=== PATIENT | female | born 1970 | race Caucasian/White ===

== ENCOUNTER 2017-08-31 15:37 | Emergency (ER) | payer MEDICAID ==
[~2017-08-31] VITALS: Ht 162.6 cm; Wt 74.2 kg
[2017-08-31 15:43] VITALS: Ht 162.6 cm; Wt 74.2 kg
--- NOTE | 2017-08-31 17:02 | RADRPT ---
PROCEDURE: Chest x-ray CLINICAL INDICATION: Chest pain TECHNIQUE: Chest single view COMPARISON: None FINDINGS: The heart is normal in size. The pulmonary vessels are normal in caliber. The lungs are clear. Th e costophrenic angles are sharp. The visualized bony thorax is unremarkable. IMPRESSION: No acute cardiopulmonary disease. RPTAT: HH .Jose Guadalupe Contreras MD, MD Date Time Electronically viewed and signed by .Jose Guadalupe Contreras MD, on 08/31/2017 17:02 .W/
[2017-08-31 17:26] LABS: BASOPHIL # 0.1 10^3/ul (0.0-0.1); BASOPHILS % 0.9 % (0.0-2.0); EOSINOPHILS % 0.6 % (0.0-7.0); HEMATOCRIT 38.4 % (37.0-47.0); LYMPHOCYTES # 2.4 10^3/ul (0.8-2.9); LYMPHOCYTES % 36.3 % (15.0-51.0); MEAN CORPUSCULAR HGB CONC 33.9 g/dl (32.0-37.0); MEAN CORPUSCULAR VOLUME 94.6 fl (82.0-101.0); MEAN PLATELET VOLUME 12.1 fl (7.4-10.4); MONOCYTE # 0.6 10^3/ul (0.3-0.9); MONOCYTES % 9.8 % (0.0-11.0); NEUTROPHIL # 3.4 10^3/ul (1.6-7.5); NEUTROPHILS % 52.2 % (39.0-77.0); PLATELET COUNT 185 10^3/UL (140-415); RED BLOOD COUNT 4.06 10^6/ul (4.20-5.40); RED CELL DISTRIBUTION WIDTH 12.2 % (11.5-14.5); WHITE BLOOD COUNT 6.5 10^3/ul (4.8-10.8)
[2017-08-31 17:46] LABS: ANION GAP 13 (8-16); BLOOD UREA NITROGEN 12 mg/dl (7-20); CALCIUM 9.1 mg/dl (8.4-10.2); CARBON DIOXIDE 27 mmol/L (21-31); CHLORIDE 107 mmol/L (97-110); CREATININE 0.75 mg/dl (0.44-1.00); GLUCOSE 99 mg/dl (70-220); POTASSIUM 4.7 mmol/L (3.5-5.1); SODIUM 142 mmol/L (135-144)
[2017-08-31 17:56] LABS: TROPONIN-I < 0.012 ng/ml (0.00-0.12)
[2017-08-31] MEDS ORDERED: KETOROLAC 30 MG INJ IV STA (18:01)
[2017-08-31] MEDS ORDERED: KETOROLAC 30 MG INJ ONE (18:13)
--- NOTE | 2017-08-31 18:24 | ERD ---
ER Documentation Chief Complaint Chief Complaint Chest pain x 3 days on and off, w/SOB HPI This is a 47-year-old female with no previous medical conditions who presents to the emergency room for evaluation of chest pain. The patient states she has had chest pain on and off for the past 3 days however is been constant for the past 24 hours. The patient states that as an achy pain worse with deep inspiration. The patient denies any radiation of the pain and denies any exertional component of the pain. Patient denies any nausea, vomiting, diaphoresis associated with this pain and came to the emergency room today for evaluation of her symptoms ROS All systems reviewed and are negative except as per history of present illness. Allergies Allergies: Coded Allergies: No Known Allergy (Unverified , 08/31/17) PMhx/Soc Medical and Surgical Hx: pt denies Medical Hx, pt denies Surgical Hx Hx Alcohol Use: No Hx Substance Use: No Hx Tobacco Use: No Smoking Status: Never smoker Physical Exam Vitals Vital Signs Date Time Temp Pulse Resp B/P Pulse Ox O2 Delivery O2 Flow Rate FiO2 08/31/17 17:13 Nasal Cannula 2 08/31/17 15:43 98.4 84 20 151/78 99 Physical Exam INITIAL VITAL SIGNS: Reviewed by me GENERAL: The patient is well developed and appropriate for usual state of health in no apparent distress HEENT: Pupils equal, round, and reactive to light. EOMI. There is no scleral icterus. NECK: C-spine is soft and supple, there is no meningismus. There is no cervical lymphadenopathy. LUNGS: Clear to auscultation bilaterally. There are no rales, wheezes or rhonchi. HEART: Regular rate and rhythm, no murmurs, clicks, rubs or gallops. ABDOMEN: Soft, non-tender, non-distended. There are bowel sounds in all four quadrants. No rebound or guarding. EXTREMITIES: There is no peripheral cyanosis or edema. No focal swelling or erythema. NEUROLOGICAL: The patient moves all four extremities with 5/5 strength. Cranial nerves II - XII are intact. Normal gait. Alert and oriented SKIN: There is no apparent rash or petechiae. HEME/LYMPHATIC: There is no evidence of excessive bruising or lymphedema. PSYCHIATRIC: The patient does not appear anxious or depressed. Result Diagram: 08/31/17 1700 08/31/17 1700 Results 24 hrs Laboratory Tests Test 08/31/17 17:00 White Blood Count 6.510^3/ul Red Blood Count 4.0610^6/ul Hemoglobin 13.0g/dl Hematocrit 38.4% Mean Corpuscular Volume 94.6fl Mean Corpuscular Hemoglobin 32.0pg Mean Corpuscular Hemoglobin Concent 33.9g/dl Red Cell Distribution Width 12.2% Platelet Count 88675^3/UL Mean Platelet Volume 12.1fl Neutrophils % 52.2% Lymphocytes % 36.3% Monocytes % 9.8% Eosinophils % 0.6% Basophils % 0.9% Nucleated Red Blood Cells % 0.0/100WBC Neutrophils # 3.410^3/ul Lymphocytes # 2.410^3/ul Monocytes # 0.610^3/ul Eosinophils # 0.010^3/ul Basophils # 0.110^3/ul Nucleated Red Blood Cells # 0.010^3/ul Sodium Level 142mmol/L Potassium Level 4.7mmol/L Chloride Level 107mmol/L Carbon Dioxide Level 27mmol/L Anion Gap 13 Blood Urea Nitrogen 12mg/dl Creatinine 0.75mg/dl Glucose Level 99mg/dl Calcium Level 9.1mg/dl Troponin I < 0.012ng/ml Current Medications Medications (Trade) Dose Ordered Sig/Paulette Route PRN Reason Start Time Stop Time Status Last Admin Dose Admin Ketorolac Tromethamine (Toradol) 30 mg ONCE STAT IV 08/31/17 18:01 08/31/17 18:20 DC Ketorolac Tromethamine (Toradol) 30 mg STK-MED ONCE .ROUTE 08/31/17 18:13 08/31/17 18:14 DC Procedures/MDM EKG: Rate/Rhythm: [Normal Sinus Rhythm] QRS, ST, T-waves: [No changes consistent w/ acute ischemia] Impression: [No evidence of ischemia or arrhythmia] Chest X-ray 1V Interpreted by me: Soft Tissue: No acute abnormalities Bones: No acute abnormalities Mediastinum/Cardiac Silhouette/Lungs: [No acute abnormalities] This 47-year-old female presents to the ER for evaluation of chest pain. This patient is in no acute distress when I evaluated her she was hemodynamically stable, nontoxic-appearing and not hypoxic. This patient is no previous medical conditions, no family history, she is non-smoker. Lab work was obtained in the patient's troponin is negative. Her chest x-ray is clear and her EKG is nonischemic with no signs of ST elevation or ST depression. This patient has a PERC score of 0, she has a heart score of 0, and was feeling better after she was given Toradol. This patient likely suffering from costochondritis. Patient will be discharged home with a prescription for Motrin and instructions to return immediately to the ER if the patient's chest pain or shortness of breath were to return or worsen. She verbalized understanding and is okay to plan of care. Exitcare instructions provided. Patient counseled regarding my diagnostic impression and care plan. Precautionary instructions provided including instructions to return to the ER if not improving or for any worsening or changing symptoms or concerns. Prescriptions: Motrin Precautionary instructions provided regarding medication use and safety. Specialist follow up recommended: [none] Patient has been advised to follow up with primary care provider as needed. Prior to discharge, patient's vital signs have been reviewed. [Patient's blood pressure was noted elevated (>120/80). The patient was counseled about the risks of hypertension and urged to pursue outpatient monitoring and therapy within a week with their primary care physician.] Departure Diagnosis: Primary Impression: Chest pain Condition: Stable MORIAHSKY DAMICO Aug 31, 2017 18:24
[2017-08-31] MEDS ORDERED: IBUP800T25 PO (18:25)
[2017-08-31 18:40] VITALS: BP 120/54; PULSE 65; RESP 20; TEMP 97.8
== END 2017-08-31 18:41 | disposition home or self-care (01) ==
LOC: E/R 15:37
DX: R07.9 Chest pain, unspecified (principal)
CPT/HCPCS: 36415; 71010; 80048; 84484; 85025; 93005; 96374; J1885; Z7502

== ENCOUNTER 2019-05-11 13:50 | Emergency (ER) | payer MEDICAID ==
[~2019-05-11] VITALS: Ht 165.1 cm; Wt 79.3 kg
[~2019-05-11 13:50] MED LIST: IBUP-1544 PO
[2019-05-11 14:01] VITALS: BP 129/61; PULSE 76; RESP 16; Ht 165.1 cm; Wt 79.3 kg
[2019-05-11] MEDS ORDERED: LORAZEPAM 0.5 MG TAB PO ONE (15:30)
--- NOTE | 2019-05-11 15:31 | ERD ---
ER Documentation Chief Complaint Chief Complaint anxiety x 4 days, feels nervous HPI 49-year-old female, with history of depression, presents to the emergency department, brought in by a sister, complaining of 4 days with increased anxiety, associated with lack of sleep. The patient denies any visual or auditory hallucinations, no suicidal or homicidal ideation. ROS All systems reviewed and are negative except as per history of present illness. Medications Home Meds Active Scripts Lorazepam* (Ativan*) 0.5 Mg Tablet, 0.5 MG PO Q8H PRN for ANXIETY, #10 TAB Prov:CHANTEL LAURENT MD 05/11/19 Ibuprofen* (Ibuprofen*) 800 Mg Tablet, 800 MG PO Q8 for 10 Days, TAB Prov:SKY MAJOR DO 08/31/17 Allergies Allergies: Coded Allergies: No Known Allergy (Unverified , 08/31/17) PMhx/Soc Hx Psychiatric Problems: Yes (depression) Hx Alcohol Use: No Hx Substance Use: No Hx Tobacco Use: No FmHx Family History: diabetes; No coronary disease Physical Exam Vitals Vital Signs Date Temp Pulse Resp B/P (MAP) Pulse Ox O2 O2 Flow FiO2 Time Delivery Rate 05/11/19 98.9 76 16 129/61 98 14:01 (83) Physical Exam Const: No acute distress, But looks anxious and distracted. Head: Atraumatic Eyes: Normal Conjunctiva ENT: Normal External Ears, Nose and Mouth. Neck: Full range of motion. No meningismus. Resp: Clear to auscultation bilaterally Cardio: Regular rate and rhythm, no murmurs Abd: Soft, non tender, non distended. Normal bowel sounds Skin: No petechiae or rashes Back: No midline or flank tenderness Ext: No cyanosis, or edema Neur: Awake and alert Psych: Normal Mood and Affect Results 24 hrs Current Medications Medications Dose Sig/Paulette Start Time Status Last (Trade) Ordered Route PRN Stop Time Admin Dose Reason Admin Lorazepam 0.5 mg ONCE ONCE 05/11/19 DC 05/11/19 (Ativan) PO 15:30 15:36 05/11/19 15:35 Procedures/MDM Vital signs stable, Physical exam unremarkable, neurovascular exam intact. Differential diagnosis include but not limited to: Depression, anxiety, migraine, thyroid disease, electrolyte imbalance. Low suspicion for acute coronary event, aortic dissection, CVA. Physical examination and clinical presentation consistent most likely with anxiety. During the ED course the patient remained stable, no new complaints. The patient received treatment with lorazepam presenting overall improvement of the symptoms. Treatment options, results and clinical impression discussed with patient who agrees with management. The patient is stable to be treated outpatient and will be discharged home with a Rx for lorazepam, some side effects of prescribed medications (headache, rash, nausea, vomiting, diarrhea, drowsiness, habituation, bleeding, hypertension, interactions with other medications) were reviewed. The patient was instructed to follow up with the primary care provider in the next 48h. If symptoms persist, worsen or new symptoms develop, then patient should return to the ED immediately. Instructions explained and given directly by me to the patient with acknowledgment and demonstrated understanding. Disclaimer: Inadvertent spelling and grammatical errors are likely due to EHR/dictation software use and do not reflect on the overall quality of patient care. Also, please note that the electronic time recorded on this note does not necessarily reflect the actual time of the patient encounter. Departure Diagnosis: Primary Impression: Anxiety Condition: Stable Additional Instructions: Muchas phillip por [facility] para torres servicio. Esperamos que en torres visita a la telma de emergencia torres problema medico haya sido solucionado y que se sienta mucho mejor. Para estar seguros que torres mejoria sigue en proceso, le pedimos el favor de hacer eliza china de seguimiento medico con torres doctor primario en los proximos 2-4 ledezma. Lleve con usted estos documentos y las medicinas recetadas. Si gonsalo sintomas empeoran, NO SE ESPERE, por favor regrese a telma de emergencia INMEDIATAMENTE. En ceci que usted no tenga un mdico de atencin primaria: Llame al mdico o clnica comunitaria de referencia que aparece abajo radha las horas de consultorio para hacer eliza china para que le vean. CLINICAS: [facility] [phone] [id number] [facility] [phone] [id number] [facility] [phone] [facility] [phone] [facility] [phone] [facility]. [phone] CHANTEL HILL MD May 11, 2019 15:31
[2019-05-11] MEDS ORDERED: LORA-441 PO (15:51)
== END 2019-05-11 16:06 | disposition home or self-care (01) ==
LOC: FTE 13:50
DX: F41.9 Anxiety disorder, unspecified (principal)
CPT/HCPCS: Z7502; Z7610; 99283